=== PATIENT | female | born 1975 | race Caucasian/White ===

== ENCOUNTER 2016-09-26 16:31 | Emergency (ER) | payer OTHER ==
--- NOTE | ~2016-09-26 | CT4 ---
[facility] A Service of [facility] RADIOLOGY TEXT RESULTS PATIENT: FRANCE FERNANDES LOCATION: SED : 71 UNIT #: [id number] AGE: [address]: Tato Miramontes MD SEX: F ORDER DR: [id number] [place] [id number] E MR#: [id number] Acc #: [id number] NAME: FRANCE FERNANDES. : 1975 SEX: F STUDY DATE/TIME: 09/26/2016 17:10 UNIT: SED ROOM: STUDY DESCRIPTION: CT Abd and Pelv Wo Cont Attending Physician: Tato Miramontes M.D. Ordering Physician: Tato Miramontes M.D. Primary Care Physician: Moo Trevino M.D. MEDICAL IMAGING REPORT This report is preliminary unless electronic signature is present. EXAM CT abdomen and pelvis without contrast. DATE OF STUDY 09/26/[address] abdomen and pelvis with multiplanar reformats. This CT exam was performed with one or more of the following radiation dose reduction techniques: automatic exposure control, adjustment of mA and/or kV according to patient size, and iterative reconstruction. CLINICAL HISTORY Right flank pain and nausea since this morning. FINDINGS The lung bases are unremarkable. ABDOMEN: Unenhanced images of the liver and gallbladder are normal. There is a nonobstructing 3-4 mm stone or stones in the left renal lower pole but there is no ureterolithiasis or hydronephrosis on either side. The right kidney and both adrenal glands are normal and the aorta is normal in caliber. There is no bowel obstruction. PELVIS: Surgical clips in the right lower quadrant suggest prior appendectomy. There is no hernia or bowel obstruction. The bony structures are normal. IMPRESSION 1. Nonobstructing 3-4 mm left renal lower pole stone, but no ureterolithiasis or hydronephrosis and no right-sided renal stones are seen. 2. Prior appendectomy, no inflammatory change or mass or other acute [facility] A Service of [facility] RADIOLOGY TEXT RESULTS PATIENT: FRANCE FERNANDES LOCATION: [facility] [place] #: [id number] : [birth year] UNIT #: [id number] AGE: [address]: Tato Miramontes MD SEX: F ORDER DR: process. No hernia or bowel obstruction. Dictated by... Ramy Reyes M.D. THIS IS AN ELECTRONICALLY VERIFIED REPORT Ramy Reyes M.D. at 09/27/2016 2:16 PM RENUKA/marilin TD: 09/26/2016 20:44 JOB #: [id number] MEDICAL IMAGING REPORT Page 1 of 1
[~2016-09-26 16:31] MED LIST: ACYCLOVIR400 MG PO; ATIVAN0.5 MG PO; BACTRIM DS TABL1 TA1 PO; BACTRIM DS TABL1 TA2 PO; CIPRO PO; COREG3.125 MG PO; COZAAR PO; DARVOCET-N 1001 TA2 PO; DOXYCYCLINE HY100 M1 PO; DOXYCYCLINE150 MG PO; DULCOLAX5 MG; EC-NAPROSYN500 MG PO; FLAGYL PO; FLEXERIL10 MG PO; FLOMAX0.4 M1 PO; HYDROCODON-ACE1 EAC7 PO; HYDROCODONE/APA1 T16 PO; IBUPROFEN PO; IMITREX SUBQ; IRON1 TA1 PO; KEFLEX500 MG PO; KETOPROFEN PO; LISINOPRIL-HCTZ1 T15; LISINOPRIL-HCTZ1 T15 PO; LISINOPRIL-HCTZ1 T18 PO; LISINOPRIL-HCTZ1 T19 PO; LORTAB 5/500 TA1 TA1; LORTAB 5/500 TA1 TA1 PO; METHYLDOPA500 MG PO; MIRALAX17 GM PO; MOBIC; MOBIC15 MG; NAPROSYN500 MG PO; NAPROXEN PO; NEXIUM PO; NO MEDICATIONS; NORCO 10-325 TA1 TAB PO; NORCO 5/325 TAB1 TAB PO; NORCO1 TAB 10/3 PO; PERCOCET5/325; PERCOCET5/325 PO; PHENERGAN PO; PHENERGAN25 M1 PO; PHENERGAN25 MG PO; PRENATAL1 TA1 PO; PREVACID; PREVACID PO; PRILOSEC40 MG; PRILOSEC40 MG PO; PYRIDIUM PO; TOPAMAX; TOPAMAX PO; TOPAMAX50 MG PO; TRAMADOL HCL50 M1 PO; TYLENOL #3 PO; ULTRAM PO; VICODIN 5/1 TAB 5/50 PO; ZESTRIL10 MG; ZOFRAN ODT4 MG PO; [UNRECOGNIZED DRUG - OTHER] RC
[2016-09-26 17:11] LABS: URINE SOURCE CLEAN CATCH
[2016-09-26 17:15] LABS: URINE APPEARANCE HAZY; URINE BILIRUBIN NEG (NEG); URINE BLOOD NEG (NEG); URINE COLOR YELLOW; URINE GLUCOSE NEG (NORM); URINE KETONE NEG (NEG); URINE NITRATE NEG (NEG); URINE PH 6.5 (5-8); URINE PROTEIN NEG (NEG); URINE SPECIFIC GRAVITY 1.015 (1.003-1.035); URINE UROBILINOGEN 0.2 MG/DL (NORM)
[2016-09-26 17:16] LABS: BASOPHIL% 0.4 % (0-2.5); EOSINOPHIL# 0.1 X10e3 (0-0.7); EOSINOPHIL% 0.7 % (0.0-7.0); HEMATOCRIT 43.2 % (35.0-45.0); HEMOGLOBIN 14.7 gm/dL (12.0-16.0); LYMPHOCYTE# 1.4 X10e3 (1.0-3.5); MEAN CELL VOLUME 94.4 FL (83-96); MEAN CORPUSCULAR HGB CONC 33.9 g/dL (30-36); MEAN PLATELET VOLUME 8.5 FL (6.5-11.5); MONOCYTE# 0.6 X10e3 (0-1.0); MONOCYTE% 5.8 % (3.0-12.0); NEUTROPHIL# 8.5 X10e3 (1.5-7.1); NEUTROPHIL% 80.1 % (40-75); PLATELET COUNT 248 X10e3 (140-420); RED BLOOD COUNT 4.58 X10e (3.90-5.30); WHITE BLOOD COUNT 10.7 X10e3 (4.0-10.5)
[2016-09-26 17:17] LABS: DIFF IND NO
[2016-09-26 17:20] LABS: MICRO INDICATED? YES; URINE LEUKOCYTE ESTERASE TRACE (NEG)
[2016-09-26 17:21] LABS: CULTURE INDICATED? YES; URINE BACTERIA 2+ (NEG); URINE RBC 0-2 /[HPF] (0-2); URINE SQUAMOUS EPITHELIAL CELL MANY /[HPF]; URINE WBC 0-2 /[HPF] (0-5)
[2016-09-26 17:32] LABS: AMPHETAMINE NEG (NEG); BARBITURATES NEG (NEG); BENZODIAZEPINES NEG (NEG); COCAINE NEG (NEG); MARIJUANA NEG (NEG); OPIATES POS (NEG); TRICYCLIC ANTIDEPRESSANTS POS (NEG); U METHADONE NEG (NEG)
[2016-09-26 17:35] LABS: ALBUMIN SERUM 4.4 g/dL (3.5-5.0); ALKALINE PHOSPHATASE 49 U/L (32-92); ALT (SGPT) 27 U/L (10-40); AMYLASE 24 U/L (0-46); AST (SGOT) 23 U/L (10-42); BILIRUBIN,TOTAL 0.2 mg/dL (0.2-2.0); BLOOD UREA NITROGEN 8 mg/dL (9-23); BUN/CREATININE RATIO 11.42; CALCIUM SERUM 9.4 mg/dL (8.4-10.2); CARBON DIOXIDE 24 mmol/L (22-31); CHLORIDE 105 mmol/L (100-111); CREATININE SERUM 0.7 mg/dL (0.6-1.4); GLOM FILT RATE Estimated 106.1 mL/min (>60); GLUCOSE FASTING 92 mg/dL (70-110); LIPASE 29 U/L (22-51); POTASSIUM 3.4 mmol/L (3.5-5.1); PROTEIN TOTAL SERUM 7.4 g/dL (6.0-8.3); SODIUM 137 mmol/L (135-145)
[2016-09-26 17:36] LABS: BILIRUBIN, DIRECT <0.1 mg/dL (0.0-0.2); BILIRUBIN,INDIRECT 0.1 mg/dL (0.0-0.9)
== END 2016-09-26 18:32 | disposition home or self-care (01) ==
LOC: SED 16:31
PROVIDERS: Emergency Medicine
DX: N30.01 Acute cystitis with hematuria (principal); K21.9 Gastro-esophageal reflux disease without esophagitis; Z87.442 Personal history of urinary calculi; I10 Essential (primary) hypertension; Z90.49 Acquired absence of other specified parts of digestive tract; Z90.710 Acquired absence of both cervix and uterus; Z88.0 Allergy status to penicillin; Z88.2 Allergy status to sulfonamides; Z91.041 Radiographic dye allergy status; Z79.899 Other long term (current) drug therapy
CPT/HCPCS: 36415; 74176; 80048; 80076; 80307; 81003; 82150; 83690; 85025; 87086; 96361; 96374; 96375; 96376; 99284; J1170; J2405